=== PATIENT | female | born 1990 | race Caucasian/White ===

== ENCOUNTER 2018-05-14 05:38 | Outpatient (CLI) | payer MEDICAID ==
[2018-05-14 08:12] LABS: ADD UMIC NO; UR ASCORBIC ACID NEGATIVE (NEGATIVE); UR BILIRUBIN (Dip) NEGATIVE (NEGATIVE); UR BLOOD (Dip) NEGATIVE (NEGATIVE); UR CLARITY CLEAR (CLEAR); UR COLOR COLORLESS (YELLOW); UR GLUCOSE (Dip) NEGATIVE (NEGATIVE); UR KETONES (Dip) NEGATIVE (NEGATIVE); UR LEUKOCYTE ESTERASE (Dip) NEGATIVE Leu/ul (NEGATIVE); UR NITRITE (Dip) NEGATIVE (NEGATIVE); UR SPECIFIC GRAVITY (Dip) 1.002 (1.003-1.030); UR TOTAL PROTEIN (Dip) NEGATIVE (NEGATIVE); UR UROBILINOGEN (Dip) NEGATIVE (NEGATIVE)
== END 2018-05-14 10:35 | disposition home or self-care (01) ==
LOC: OBT 05:38 → L-D 05:38 → OBT 10:35
DX: O62.9 Abnormality of forces of labor, unspecified (principal); Z3A.34 34 weeks gestation of pregnancy
CPT/HCPCS: 76818; 81003; 87086

== ENCOUNTER 2018-06-19 09:21 | Inpatient (IN) | payer MEDICAID ==
[2018-06-19] MEDS ORDERED: MISOPROSTOL 200 MCG TAB PR ×2 (10:00→20:00)
[2018-06-19] MEDS ORDERED: METHYLERGONOVINE 0.2 MG INJ IM ×2 (10:00→20:00)
[2018-06-19] MEDS ORDERED: OXYTOCIN 30 UNITS/LR 500 ML IV (10:00)
[2018-06-19] MEDS ORDERED: LACTATED RINGER'S 1,000 ML IV* (10:00)
[2018-06-19] MEDS ORDERED: CARBOPROST 250 MCG INJ IM ×2 (10:00→20:00)
[2018-06-19] MEDS ORDERED: BUTORPHANOL 1 MG INJ IV (10:00)
[2018-06-19] MEDS ORDERED: BUTORPHANOL 2 MG INJ IV (10:00)
[2018-06-19] MEDS ORDERED: LIDOCAINE 1% (MPF) 30 ML INJ INJ (10:00)
[2018-06-19 10:51] LABS: ADD MAN DIFF? NO
[2018-06-19 10:55] LABS: BASOPHILS % 0.3 % (0.0-2.0); EOSINOPHILS # 0.1 10^3/ul (0.0-0.5); EOSINOPHILS % 0.6 % (0.0-7.0); HEMATOCRIT 36.1 % (37.0-47.0); HEMOGLOBIN 11.9 g/dl (12.0-16.0); LYMPHOCYTES # 1.6 10^3/ul (0.8-2.9); LYMPHOCYTES % 16.6 % (15.0-51.0); MEAN CORPUSCULAR HEMOGLOBIN 27.9 pg (29.0-33.0); MEAN CORPUSCULAR VOLUME 84.7 fl (82.0-101.0); MEAN PLATELET VOLUME 11.7 fl (7.4-10.4); MONOCYTE # 1.1 10^3/ul (0.3-0.9); MONOCYTES % 11.8 % (0.0-11.0); NEUTROPHIL # 6.7 10^3/ul (1.6-7.5); NEUTROPHILS % 69.6 % (39.0-77.0); PLATELET COUNT 291 10^3/UL (140-415); RED BLOOD COUNT 4.26 10^6/ul (4.20-5.40); RED CELL DISTRIBUTION WIDTH 15.9 % (11.5-14.5)
[2018-06-19 10:55] LABS: WHITE BLOOD COUNT 9.7 10^3/ul (4.8-10.8)
[2018-06-19 11:14] LABS: INR 0.83; PROTIME 11.5 Sec (11.9-14.9); PT RATIO 0.9
[2018-06-19 11:16] LABS: PARTIAL THROMBOPLASTIN TIME 27.6 Sec (23.0-35.0)
[2018-06-19 16:46] LABS: RAPID PLASMA REAGIN NONREACTIVE (NR)
[2018-06-19] MEDS: OXYTOCIN 30 UNITS/LR 500 ML IV ×2 (18:36→22:05)
[2018-06-19] MEDS: LACTATED RINGER'S 1,000 ML IV* (19:39)
[2018-06-19] MEDS ORDERED: LANOLIN 7 GM TUBE TOP (20:00)
[2018-06-19] MEDS ORDERED: HYDROCODONE/APAP (5/325) TAB PO (20:00)
[2018-06-19] MEDS ORDERED: ACETAMINOPHEN 325 MG TAB PO (20:00)
[2018-06-19] MEDS ORDERED: DIBUCAINE 1% 30 GM OINT PR (20:00)
[2018-06-19] MEDS: WITCH HAZEL/GLYCERIN PAD PR (21:57)
[2018-06-19] MEDS: SENNA/DOCUSATE NA (8.6MG/50MG) TAB PO (21:57)
[2018-06-19] MEDS: BENZOCAINE 20% 56 ML SPRAY TOP (21:57)
[2018-06-20] MEDS: IBUPROFEN 600 MG TAB PO ×4 (00:30→17:59)
[2018-06-20 00:58] LABS: HEPATITIS B SURFACE ANTIGEN NEGATIVE (NEGATIVE)
[2018-06-20] MEDS: LACTATED RINGER'S 1,000 ML IV* ×3 (03:39→19:39)
[2018-06-20 08:31] LABS: ADD MAN DIFF? NO
[2018-06-20 08:34] LABS: BASOPHIL # 0.1 10^3/ul (0.0-0.1); BASOPHILS % 0.3 % (0.0-2.0); EOSINOPHILS # 0.1 10^3/ul (0.0-0.5); EOSINOPHILS % 0.3 % (0.0-7.0); HEMATOCRIT 34.2 % (37.0-47.0); HEMOGLOBIN 11.2 g/dl (12.0-16.0); LYMPHOCYTES # 2.1 10^3/ul (0.8-2.9); LYMPHOCYTES % 14.5 % (15.0-51.0); MEAN CORPUSCULAR HEMOGLOBIN 27.7 pg (29.0-33.0); MEAN CORPUSCULAR HGB CONC 32.7 g/dl (32.0-37.0); MEAN CORPUSCULAR VOLUME 84.7 fl (82.0-101.0); MEAN PLATELET VOLUME 11.7 fl (7.4-10.4); MONOCYTE # 1.2 10^3/ul (0.3-0.9); MONOCYTES % 8.1 % (0.0-11.0); NEUTROPHILS % 75.8 % (39.0-77.0); PLATELET COUNT 262 10^3/UL (140-415); RED BLOOD COUNT 4.04 10^6/ul (4.20-5.40); RED CELL DISTRIBUTION WIDTH 15.9 % (11.5-14.5)
[2018-06-20 08:34] LABS: WHITE BLOOD COUNT 14.6 10^3/ul (4.8-10.8)
[2018-06-20] MEDS: SENNA/DOCUSATE NA (8.6MG/50MG) TAB PO ×2 (10:01→20:41)
[2018-06-21] MEDS: IBUPROFEN 600 MG TAB PO ×3 (00:08→11:51)
[2018-06-21] MEDS: SENNA/DOCUSATE NA (8.6MG/50MG) TAB PO (09:38)
[2018-06-21] MEDS: LACTATED RINGER'S 1,000 ML IV* (09:39)
[2018-06-21] MEDS: DIPHTH/TET/ACEL PERTUSS (ADULT) 0.5 ML VIAL IM* (10:19)
== END 2018-06-21 13:55 | disposition home or self-care (01) | DRG 807 ==
LOC: OBT 09:21 → L-D 09:21 → OBT 10:00 → L-D 10:00 → PP1 19:00
PROVIDERS: Obstetrics & Gynecology
PROC: 10E0XZZ Delivery of Products of Conception, External Approach (ICD-10-PCS; principal; 2018-06-19)
PROC: 4A1HXCZ Monitoring of Products of Conception, Cardiac Rate, External Approach (ICD-10-PCS; 2018-06-19)
PROC: 3E0234Z Introduction of Serum, Toxoid and Vaccine into Muscle, Percutaneous Approach (ICD-10-PCS; 2018-06-21)
DX: O80 Encounter for full-term uncomplicated delivery (principal); Z37.0 Single live birth; Z3A.40 40 weeks gestation of pregnancy; Z23 Encounter for immunization
CPT/HCPCS: 85025; 85610; 85730; 86592; 86850; 86900; 86901; 87340; 90715